=== PATIENT | male | born 1970 | race Caucasian/White ===

== ENCOUNTER 2022-04-29 16:24 | Outpatient (CLI) | payer BC | END 2022-04-29 16:25 | disposition home or self-care (01) | LOC: CSHLAB 16:24 | PROVIDERS: ATTEND Otolaryngology Otolaryngic Allergy | DX: Z01.818 Encounter for other preprocedural examination (principal); K13.79 Other lesions of oral mucosa; G47.33 Obstructive sleep apnea (adult) (pediatric); J34.2 Deviated nasal septum; J34.3 Hypertrophy of nasal turbinates | CPT/HCPCS: 93005; 93010 ==

== ENCOUNTER 2025-02-05 07:12 | Outpatient (CLI) | payer BC ==
[2025-02-05] MEDS ORDERED: Iopamidol 300 61% 100 ML VIAL FS ONE (09:49)
== END 2025-02-05 07:13 | disposition home or self-care (01) ==
LOC: CSHCT 07:12
PROVIDERS: ATTEND Urology
DX: C61 Malignant neoplasm of prostate (principal); K80.20 Calculus of gallbladder without cholecystitis without obstruction
CPT/HCPCS: 74178